=== PATIENT | female | born 1990 | race African-American/Black ===

== ENCOUNTER 2024-06-26 12:07 | Emergency (ER) | payer BC ==
[~2024-06-26] VITALS: Ht 149.9 cm; Wt 81.6 kg
[2024-06-26 12:30] VITALS: PULSE 79; RESP 16; TEMP 98.6; O2SAT 100
[2024-06-26] MEDS ORDERED: ONDANSETRON ODT4 MG PO (13:41)
[2024-06-26] MEDS: ONDANSETRON HCL 4 MG ORAL DISINTEGRATING TAB PO ONE (14:01)
== END 2024-06-26 14:08 | disposition home or self-care (01) ==
LOC: FSED 12:13
DX: R11.2 Nausea with vomiting, unspecified (principal); R31.9 Hematuria, unspecified; J45.909 Unspecified asthma, uncomplicated; F41.9 Anxiety disorder, unspecified
CPT/HCPCS: 99283; Q0162